=== PATIENT | male | born 1965 | race Caucasian/White ===

== ENCOUNTER 2025-06-06 11:59 | Emergency (ER) | payer OTHER, SELFPAY ==
[2025-06-06 12:05] VITALS: BP 185/99
[2025-06-06 12:08] VITALS: BMI 37.9
--- NOTE | 2025-06-06 12:56 | ED.GENMED ---
History of Present Illness
General
Chief Complaint: Skin Problem
Source: patient
Exam Limitations: none
Time Seen by Provider: 06/06/25 12:32
History of Present Illness
History of Present Illness:
59yo [id number] male presenting for evaluation of left forearm redness. Patient sustained a laceration to his left thenar eminence 5 days ago. He did not initially seek medical treatment. 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
his hand which opened up the laceration. He noticed some redness to the dorsum of the left wrist yesterday. He woke up today and the redness spread up to the level of the forearm and he decided to come to the ED. He is otherwise feeling well and
denies any fevers or chills. No history of MRSA. Unknown last Tdap. Patient was last seen in the ED in January 2023 for right leg cellulitis and was treated with doxycycline at that time.
Past History
Past History
ED Past Medical History: None
ED Past Surgical History: None and Other (The patient had surgery on his ankle in 1990. )
Social History
Tobacco: Non-smoker
Personal: Single
Living: alone
Employment: Employed
Phy Exam
General Physical Exam
General Presentation: well appearing and no apparent distress
General Skin: warm and dry
General Habitus: normal
General Mental: alert
ENT Exam
ENT Exam: normocephalic
Pulmonary Exam
Pulmonary Exam: no respiratory distress
Neurological Exam
Neurological Exam: alert
Weston Coma Scale
Eye Opening: Spontaneous
Verbal Response: Oriented
Motor Response: Obeys Commands
GCS Total Score: 15
Skin Exam
Skin Exam: warm/dry and other (Approx 4cm laceration noted to L thenar eminence. There is erythema to the dorsum of the L wrist and forearm with warmth. Small wound present to the medial forearm with honey colored crusting and induration. No
fluctuance, crepitus, or pain out of proportion. ROM of L wrist normal. 2+ radial pulse.)
Psychiatric Exam
Psychiatric Exam: normal mood/affect
Course
Orders/Labs/Results
Orders:
Orders
06/06/25 12:53
Tetanus/Diphth/Acelpertussis [Adacel] 0.5 ml IM .ONCE ONE
06/06/25 13:09
Complete Blood Count/With Diff Urgent
Comprehensive Metabolic Panel Urgent
Abnormal Lab Results
06/06/25
13:09
Absolute Neuts (auto) 7.4 H 10^3/uL
(1.4-6.5)
Absolute Monos (auto) 0.8 H 10^3/uL
(0.1-0.6)
Lymphocytes % 19.1 L %
(20.5-51.1)
Sodium 132 L mmol/L
(135-145)
Glucose 115 H mg/dl
(70-99)
06/06/25 13:09
06/06/25 13:09
Vital Signs
Initial and Last Documented VS:
Initial Vital Signs
Temp Pulse Resp BP Pulse Ox
97.9 F 66 18 185/99 98
06/06/25 12:05 06/06/25 12:05 06/06/25 12:05 06/06/25 12:05 06/06/25 12:05
Last Documented Vital Signs
Temp Pulse Resp BP Pulse Ox
97.9 F 67 16 168/78 98
06/06/25 12:05 06/06/25 14:33 06/06/25 14:33 06/06/25 14:33 06/06/25 14:33
Procedures
Incision/Drainage/Joint Aspiration
Left Elbow:
Anethesia: 1% Lidocaine with Epi
Preparation: cleaned with Betadine
Type of procedure: incise and drain
Nature of site: abscess
Description of abscess: less than 3cm
How much fluid was obtained?: scant amount
Fluid description: blood tinged
Treatment: left open for drainage, antibiotics started and bandaid applied
MDM/Problems Addressed
Differential Diagnosis Includes:
59yoM here with L forearm redness. Sustained laceration to L palm 5 days ago and developed redness yesterday which is now spreading. No f/c. He is hypertensive with otherwise stable vitals. There is erythema and warmth to the L wrist and forearm.
ROM of L wrist intact, doubt septic arthritis. There is a laceration to the thenar eminence and a second wound to the lateral forearm with induration. Differential diagnosis includes: cellulitis, abscess, doubt NSTI
Initial ED plan: Check CBC and CMP. Update Tdap.
*Pulse Oximetry
SaO2: 98
Oxygen Mode of Delivery: Room air
Patient hypoxic: no
*Critical Care Note
Total Time (30-74mins, 75-104mins- exclusive of procedures): Not Applicable
Update Note
Update Note:
Labs unremarkable including normal white count and glucose. I&D attempted to L lateral forearm wound with only minimal bloody output. No indication for for hospitalization. Patient started on a course of Keflex and advised warm compresses. Advised
f/u with PCP and ED return precautions reviewed. Patient in agreement with plan and he was discharged in stable condition.
ED Attending Note
-
Portions of this chart may have been created with voice recognition software.� Occasional wrong word or��sound alike� substitutions may have occurred due to the inherent limitations of voice recognition software.
Discharge Plan
Departure
Patient Disposition: Home (Routine Discharge)
Date of Disposition: 06/06/25
Time of Disposition: 14:20
Patient with high blood pressure during this ER visit?: Yes
Discharge Problem:
Cellulitis of left forearm
Instructions: Cellulitis (Skin Infection), Adult (DC)
Prescriptions:
New
cephalexin 500 mg capsule
500 mg PO QID 7 Days Qty: 28 0RF
ibuprofen 800 mg tablet
800 mg PO Q8H PRN (Reason: Pain) Qty: 20 0RF
No Action
ibuprofen 600 MG tablet
600 mg PO TIDPRN PRN (Reason: pain) Qty: 30 0RF
doxycycline hyclate 100 mg capsule
100 mg PO BID Qty: 20 0RF
Referrals:
Guerline Downey PA [Family Provider, General]
Activity Restrictions/Additional Instructions:
Take antibiotics as prescribed. Apply warm compresses to the forearm wound.
Please follow-up with your family doctor next week. Return to the ER with any worsening symptoms including spreading redness or fevers.
Interventions
Interventions:
*Risk Screen - Suicide Last Done: 06/06/25 12:05
*General Assessment Last Done: 06/06/25 12:21
*Neglect/Abuse Screening Last Done: 06/06/25 12:05
*ED- Fall Risk Assessment Last Done: 06/06/25 12:21
*ED COVID-19 Vaccine History Last Done: 06/06/25 12:21
*ED Influenza Vaccine History Last Done: 06/06/25 12:21
*Nursing Disposition Last Done: 06/06/25 14:35
ED-Skin Assessment Last Done: 06/06/25 12:23
Discharge Date and Time
Discharge Date/Time: 06/06/25 14:35
Print Language: AMHARIC
[2025-06-06] MEDS: ADACEL 0.5 ML IM (13:12)
[2025-06-06 13:20] LABS: Hematocrit 42.3 % (39.0-52.0); Hemoglobin 14.2 g/dL (13.0-18.0); Mean Corp Hgb Conc. 33.6 g/dL (33.0-37.0); Mean Corpuscular Volume 81.0 fL (80.0-94.0); Nucleated Red Blood Cells % 0 % (-); Platelet Count 282 10^3/uL (130-400); Red Cell Dist. Width 13.3 % (11.5-14.5)
[2025-06-06 13:28] LABS: ALT (SGPT) 37 U/L (0-50); AST (SGOT) 29 U/L (17-59); Albumin 4.3 g/dl (3.5-5.0); Alkaline Phosphatase 87 U/L (38-126); Blood Urea Nitrogen 13 mg/dl (9-20); Calcium 8.8 mg/dl (8.4-10.2); Carbon Dioxide 27 mmol/L (22-30); Chloride 100 mmol/L (98-107); Estimated Creatinine Clearance > 125 ml/min; Glucose 115 mg/dl (70-99); Potassium 4.2 mmol/L (3.5-5.1); Sodium 132 mmol/L (135-145); Total Protein 7.6 g/dl (6.3-8.2); eGFR > 60.00
[2025-06-06 14:33] VITALS: BP 168/78
== END 2025-06-06 14:35 | disposition home or self-care (01) ==
LOC: EMR 11:59
PROVIDERS: Physician Assistant; EMERGENCY PHYSICIAN Student in an Organized Health Care Education/Training Program; FAMILY PHYSICIAN Physician Assistant
DX: L03.114 Cellulitis of left upper limb (principal); Z23 Encounter for immunization
CPT/HCPCS: 99283; 10060; 90471; 80053; 85025; 90715